=== PATIENT | male | born 1990 | race Caucasian/White ===

== ENCOUNTER 2025-09-18 14:28 | Emergency (ER) | payer MEDICAID, SELFPAY ==
[2025-09-18 15:18] VITALS: BP 120/84; PULSE 108; RESP 18; TEMP 36.9; O2SAT 95
--- NOTE | 2025-09-18 15:20 | XR_ITS ---
EXAMINATION: PA lateral chest 2 views TECHNIQUE: Upright PA lateral chest 2 views Date and time: September 18, 2025, 1603 hours INDICATIONS: Cough and fever beginning 3 days ago. FINDINGS: Normal heart size Mildly prominent central pulmonary arteries. No lobar pneumonia or pulmonary edema. Intact osseous structures IMPRESSION: No lobar pneumonia or pulmonary edema
[2025-09-18] MEDS: DEXAMETHASONE SOD PHOS INJ 10 MG/ML VIAL PO (15:36)
[2025-09-18] MEDS: ALBUTEROL/IPRATROPIUM (Duoneb) RT SOL 3 ML NEBU INH (15:37)
[2025-09-18 15:39] VITALS: PULSE 102; RESP 18; O2SAT 95
--- NOTE | 2025-09-18 15:49 | EDNOTE_ITS ---
<Statement entered by Xena Berumen MD - 09/19/25 12:35> As co-signing physician, I was present and available for consult prn. I concur with the plan and care as documented by the midlevel provider. ED Asthma RME/HPI General Chief Complaint: Nausea/Vomiting/Diarrhea Stated Complaint: VOMITING Time Seen by Provider: 09/18/25 14:41 Source: patient Arrival date/time: 09/18/25 14:28 35-year-old male with a history of asthma presents to the emergency room with a chief complaint of shortness of breath and vomiting x 1 day Mode of arrival: ambulatory Limitations: no limitations Related Data Home Medications ?Medication ?Instructions ?Recorded ?Confirmed Buprenorphine HCl/Naloxone HCl 8-2 3 tab SL QDAY #0 ta bs 06/26/17 * (SUBOXONE 8-2 *) Previous Rx's ?Medication ?Instructions ?Recorded albuterol sulfate 90 mcg/actuation 2 puff inhalation Q 4HR PRN dyspnea 06/26/17 aerosol inhaler (ProAir HFA) #1 inh inhalational spacing device #1 ea 06/26/17 (Aerochamber with Flowsignal) ibuprofen 800 mg tablet 800 mg PO Q8H PRN pain #30 t abs 05/13/20 albuterol sulfate 90 mcg/actuation 2 puff inhalation Q ID PRN 08/15/22 aerosol inhaler (Proventil HFA) shortness of breath or wheezing #8.5 grams budesonide-formoterol HFA 160 2 puff inhalation BID #1 0.2 grams 08/15/22 mcg-4.5 mcg/actuation aerosol inhaler (Symbicort) albuterol sulfate 90 mcg/actuation 2 puff inhalation Q 6H PRN 09/18/25 aerosol inhaler (Ventolin HFA) shortness of breath or wheezing #6.7 grams budesonide-formoterol HFA 160 1 inh inhalation BID #10 .2 grams 09/18/25 mcg-4.5 mcg/actuation aerosol inhaler ondansetron 4 mg disintegrating 4 mg PO Q8H PRN nausea and 09/18/25 tablet vomiting #14 tabs Allergies Allergy/AdvReac Type Severity Reaction Status Date / Time No Known Allergies Allergy Verified 09/18/25 14:31 Review of Systems Review of Systems Systems Reviewed: All systems reviewed, normal except as documented Constitutional Constitutional: Reports system reviewed and no additional complaints, except as documented, Denies fatigue, Denies fever(s), Denies headache(s) and Denies weakness Eyes Eyes: Reports system reviewed and no additional complaints, except as documented, Denies blurry vision and Denies change in vision ENT Ears, Nose, Mouth, and Throat: Reports system reviewed and no additional complaints, except as documented, Denies otalgia, Denies headache(s), Denies nasal congestion, Denies throat swelling and Denies vertigo Cardiovascular Cardiovascular: Reports system reviewed and no additional complaints, except as documented, Denies chest pain, Reports dyspnea and Denies dyspnea on exertion Respiratory Respiratory: Reports system reviewed and no additional complaints, except as documented, Reports chest congestion, Reports cough, Reports dyspnea, Denies dyspnea on exertion and Reports wheezing Gastrointestinal Gastrointestinal: Reports system reviewed and no additional complaints, except as documented, Denies abdominal pain, Denies cramping, Denies nausea and Denies vomiting Genitourinary Genitourinary: Reports system reviewed and no additional complaints, except as documented, Denies dysuria and Denies hematuria Musculoskeletal Musculoskeletal: Reports system reviewed and no additional complaints, except as documented and Denies back pain Integumentary/Breasts Skin/Breast: Reports system reviewed and no additional complaints, except as documented and Denies wounds Neurologic Neurologic: Reports system reviewed and no additional complaints, except as documented, Denies confusion, Denies headache(s), Denies lack of coordination, Denies vertigo and Denies weakness Psychiatric Psychiatric: Reports system reviewed and no additional complaints, except as documented, Denies anxiety, Denies confusion, Denies depression, Denies paranoia, Denies suicidal ideation and Denies tactile hallucinations Endocrine Endocrine: Reports system reviewed and no additional complaints, except as documented and Denies fatigue Hematologic/Lymphatic Hematologic/Lymphatic: Reports system reviewed and no additional complaints, except as documented and Denies lymphadenopathy Allergic/Immunologic Allergic/Immunologic: Reports system reviewed and no additional complaints, except as documented, Denies throat swelling, Denies urticaria and Reports wheezing ED Exam General Limitations: Present no limitations General appearance: Present alert and in no apparent distress Head Head exam: Present atraumatic Eye Eye exam: Present normal appearance, PERRL and EOMI ENT ENT exam: Present normal exam, normal oropharynx and mucous membranes moist Neck Neck exam: Present normal inspection, full ROM and trachea midline Chest Chest inspection: Present normal inspection and symmetric chest wall rise Respiratory Respiratory exam: Present normal lung sounds bilaterally and wheezes Expanded Respiratory Exam Location: Left: wheezes, Right: wheezes, Upper: wheezes and Lower: wheezes Cardiovascular Cardiovascular exam: Present regular rate, normal rhythm and normal heart sounds Abdominal Exam Abdominal exam: Present soft and normal bowel sounds Extremities Exam Extremities exam: Present normal inspection and full ROM Back Exam Back exam: Present normal inspection and full ROM Neurological Exam Neurological exam: Present alert, oriented X3 and CN II-XII intact Psychiatric Psychiatric exam: Present normal affect and normal mood Skin Skin exam: Present warm, dry, intact and normal color Course Quality Measures none Orders Category Date Time Status Bedside COVID-19 Antigen Test NOW Care 09/18/25 15:20 Active Bedside Influenza A&B Antigen Test NOW Care 09/18/25 15:20 Active XR chest 2V Stat Exams 09/18/25 15:20 Ordered Albuterol/Ipratr Rt Lexi [Duoneb Rt Lexi] Med 09/18/25 15:20 Discontinued 3 ml INH X1 ONE Dexamethasone Inj [Decadron Inj] Med 09/18/25 15:20 Discontinued 10 mg PO X1 ONE Vital Signs Vital signs: Vital Signs Temperature 98.4 F 09/18/25 15:18 Pulse Rate 108 H 09/18/25 15:18 Respiratory Rate 18 09/18/25 15:18 Blood Pressure 120/84 09/18/25 15:18 Pulse Oximetry (%) 95 09/18/25 15:18 Oxygen Delivery Method Room Air 09/18/25 15:18 Asthma MDM Narrative MDM Narrative:: 35-year-old male with a history of asthma presents to the emergency room with a chief complaint of shortness of breath and vomiting x 1 day Patient is hemodynamically stable and in no apparent distress. Patient is afebrile not tachycardic not tachypneic and her O2 saturation is 95% on room air Physical examination shows bilateral upper and lower lobe wheezing. Steroids and a breathing treatment was given with significant improvement to the patient's symptoms. Chest x-ray was negative for any pneumonic infiltrates. COVID-19 and influenza test were both negative Patient was discharged and educated to follow-up with primary care provider in the next 24 to 48 hours and return to the emergency room for any evidence of worsening signs or symptoms Patient data External records reviewed:: [facility] previous records Clinical information provided by:: patient Social determinants that could affect healthcare access:: none Patient has the following chronic illnesses:: Asthma How is presenting disease/condition affected by chronic disease/condition?: exacerbated by Evaluation data The following diagnostics were reviewed and interpreted by me:: lab results and radiology exam(s) Lab and/or radiology exams considered but not ordered:: Labs and radiology exams considered and ordered Interpretation Summary: Chest x-ray-no pneumonic infiltrates Medications / Prescriptions Medications or Prescriptions considered but not ordered:: Medication given Medication administrations:: Medication Administration History Discontinued Medications Albuterol/Ipratropium (Albuterol/Ipratropium (Duoneb) Rt Lexi 3 Ml Nebu) 3 ml INH X1 ONE Stop: 09/18/25 15:21 Last Admin: 09/18/25 15:37 Dose: 3 ml Documented By: [facility] Dexamethasone Sodium Phosphate (Dexamethasone Sod Phos Inj 10 Mg/Ml Vial) 10 mg PO X1 ONE Stop: 09/18/25 15:21 Last Admin: 09/18/25 15:36 Dose: 10 mg Documented By: Consultations Consultation(s) initiated? (list below): No Diagnosis Differential diagnosis asthma: Acute exacerbation, Acute asthmatic bronchitis, Pneumonia and COPD exacerbation Most likely diagnosis given after review of the tests above:: Acute asthma exacerbation Admission Indicated Admission indicated?: not indicated Admission Request Was there a request for admission?: No Disposition Plan Disposition Plan: Discharge Discharge Attestation Discharge Attestation: The patient and all family members were given an opportunity to ask questions and understood the discharge instructions. Discharge instructions specifically effects, indications for sooner follow up or return to the emergency department, and the expected course of current diagnosis. Patient condition: Stable Discharge Plan Plan Patient Disposition: HOME (Self Care) Discharge Disposition comment: Stable Prescriptions/Referrals Prescriptions/Med Rec: New ondansetron 4 mg tablet,disintegrating 4 mg PO Q8H PRN (Reason: nausea and vomiting) Qty: 14 0RF budesonide-formoterol 160-4.5 mcg/actuation HFA aerosol inhaler 1 inh inhalation BID Qty: 10.2 0RF albuterol sulfate [Ventolin HFA] 90 mcg/actuation HFA aerosol inhaler 2 puff inhalation Q6H PRN (Reason: shortness of breath or wheezing) Qty: 6.7 0RF No Action Buprenorphine HCl/Naloxone HCl 8-2 * (SUBOXONE 8-2 *) 1 EACH TAB.SUBL 3 tab SL QDAY Qty: 0 albuterol sulfate [ProAir HFA] 8.5 GM HFA aerosol inhaler 2 puff Inhalation Q4HR PRN (Reason: dyspnea) Qty: 1 0RF (DME) inhalational spacing device [Aerochamber with Flowsignal] 1 INHALER inhaler 1 ea Inhalation Qty: 1 0RF ibuprofen 800 mg tablet 800 mg PO Q8H PRN (Reason: pain) Qty: 30 0RF albuterol sulfate [Proventil HFA] 90 mcg/actuation HFA aerosol inhaler 2 puff inhalation QID PRN (Reason: shortness of breath or wheezing) Qty: 8.5 0RF budesonide-formoterol [Symbicort] 160-4.5 mcg/actuation HFA aerosol inhaler 2 puff inhalation BID Qty: 10.2 0RF Referrals: No Primary/Family,Physician [Primary Care Provider] - In 1 week Problem List Clinical Impression: Asthma exacerbation Patient/Caregiver Discharge Instructions Education Materials: ED Asthma, Acute (Adult) Additional Instructions: Please follow-up with your primary care provider in the next 24 to 48 hours Medication was sent to your pharmacy please pick it up and take it as indicated For any evidence of worsening signs or symptoms return to the emergency room immediately Print Language: Belarusian Stand Alone Forms: Shannon Award Info., Work/School Release, Patient Portal Info Letter PA/MAKEUP SALES CONSULTANT Supervising Physician PA/MAKEUP SALES CONSULTANT Supervising Physician: Dr. Chappell
== END 2025-09-18 17:22 | disposition home or self-care (01) ==
PROVIDERS: Emergency Provider Emergency Medicine
DX: J45.901 Unspecified asthma with (acute) exacerbation (principal); Z79.51 Long term (current) use of inhaled steroids
CPT/HCPCS: 71046; 87400; 87811; 94640; 99283; A9270; J1100